=== PATIENT | male | born 1970 | race Caucasian/White ===

== ENCOUNTER 2020-11-07 09:46 | Inpatient (IN) ==
[2020-11-07 10:07] VITALS: BMI 36.3
[2020-11-07] MEDS ORDERED: DECADRON INJ IVP ONE (10:24)
[2020-11-07] MEDS ORDERED: PULMICORT NEB TX 0.5 MG NEB ONE (10:24)
[2020-11-07] MEDS ORDERED: PROVENTIL NEB TX 0.083% 2.5MG/ 3ML NEB ONE (10:24)
[2020-11-07] MEDS ORDERED: DECADRON INJ ONE (10:33)
--- NOTE | 2020-11-07 10:41 | DR.SOBA ---
HPI Time Seen Time Seen by Provider: 11/07/20 10:12 Primary Care Physician Primary Care Physician: IVELISSE VILLAFANA Complaints Chief Complaint Doctors Comments: cc: SOB HPI pt lost his sense of taste 11/02/20 had been tested on 10/31 for COVId 2nd to slight cough and was neg retested on 11/03 and + last night he began with REYES a cough mainly dry occasionally productive of brownish sputum no chest pain + low grade fever + general malaise sx increase with exertion decrease with rest Chief Complaint:: TESTED POSTIVE WEDNESDAY FROM RAPID SWAB. HAVE BEEN HAVIING CHILLS,FEVER,COUGH,DIAARHEA AT TIMES.COUGH EVERY TIME I GET TO TALKING,BREATHING IS UNCOMFORTABLE "LIKE IF I WAS IN THE [place] AND ITS COLD." HAVE LOST TASTE AND SMELL Self Treatment fo Chief Complaint: INHALER,ANTIBOIC,PREDISONE,ZPAK,ZINC,VIT C,A, INVERMECTED COVID-19 Coronavirus risk:travel/contact w/high risk person: Yes Has patient experienced Coronavirus symptoms: Yes Coronavirus symptoms experienced: Fever, Coughing and Shortness of Breath Source History Provided: Patient Mode of Arrival Mode of Arrival: Ambulatory Timing Onset of Chief Complaint: 11/03/20 PMH PMH Past Medical History: Yes Past Medical History: Dyslipidemia Past Surgical History: Yes Surgical History: Appendectomy and Tonsillectomy Family History History of Family Medical Conditions: Yes Family Medical History: [place] and Hypertension Social History Alcohol Use: None Do you use any recreational Drugs:: No Lives With: Spouse and Family Lives Where: Home Travel Risk Coronavirus risk:travel/contact w/high risk person: Yes Has patient experienced Coronavirus symptoms: Yes Coronavirus symptoms experienced: Fever, Coughing and Shortness of Breath Infectious screening In the last 2 months have you had wt loss of >10#?: NO Have you had fever, night sweats or hemotysis?: No Have you traveled outside the country in the last 6 months?: No Isolation: Droplet ROS Review of Systems Constitutional: Chills, Diaphoresis, Fever, Malaise, Weakness and Fatigue Eyes: No Symptoms Reported ENTM: No Symptoms Reported Respiratoy: See HPI Cardiovascular: No Symptoms Reported Gastrointestinal/Abdominal: No Symptoms Reported Genitourinary: No Symptoms Reported Neurological: No Symptoms Reported Musculoskeletal: Muscle Pain Integumentary: No Symptoms Reported Hematologic/Lymphatic: No Symptoms Reported Endocrine: No Symptoms Reported Psychiatric: No Symptoms Reported All Other Systems: Reviewed and Negative PE Vital Signs Vitals: Temperature 99.7 F Pulse Rate 85 Respiratory Rate 38 Blood Pressure 140/70 O2 Sat by Pulse Oximetry 93 General Limitations: No Limitations General Appearance: Alert and In No Apparent Distress Head Head Exam: Normal Inspection, Atraumatic and Normocephalic Eyes Eye exam: Normal Appearance, PERRL and EOMI; negative Scleral Icterus, Conjunctival Injection and Nystagmus ENT ENT Exam: Normal Exam, Normal Oropharynx, Normal External Ear Exam and Mucous Membranes Moist Neck Neck Exam: Normal Inspection, Full ROM and Trachea Midline; negative Tenderness, Meningismus and Lymphadenopathy Chest Chest Inspection: Normal Inspection and Symmetric Chest Wall Rise; negative T enderness Respiratory Respiratory Exam: Normal Lung Sounds Bilat; negative Accessory Muscle Use and Chest Wall Tenderness Respiratory Exam: Bilateral: Wheezing Cardiovascular Cardiovascular Exam: Regular Rate, Normal Rhythm and Normal Heart Sounds Abdominal Exam Abdominal Exam: Normal Inspection and Normal Bowel Sounds; negative Soft, Distention, Tenderness and Guarding Extremities Extremities Exam: Normal Inspection and Full ROM; negative Tenderness, Normal Capillary Refill, Edema and Joint Swelling Back Back Exam: Normal Inspection and Full ROM; negative Tenderness, (R) CVA Tenderness, (L) CVA Tenderness and Muscle Spasm Neurologic Neurological Exam: Alert, Oriented X3 and Normal Gait Psychiatric Psychiatric Exam: Normal Affect MDM Differential Diagnosis Differential Diagnosis: Asthma, Bronchitis, CHF, COPD, Dysrhythmia, Hyp erventilation, Hyponatremia, Mycardial Infarction, Pneumonia, Pneumothorax, Pulmonary embolism, Respiratory Failure and Respiratory Insufficiency ROR Labs Reviewed Laboratory Results Reviewed?: Yes Result Diagrams: 11/07/20 10:40 11/07/20 10:40 Laboratory: WBC 6.2 X10^3/uL (3.6-10.0) 11/07/20 10:40 RBC 5.50 X10^6/uL (4.7-6.0) 11/07/20 10:40 Hgb 15.8 g/dL (13.5-18.0) 11/07/20 10:40 Hct 47.6 % (42.0-54.0) 11/07/20 10:40 MCV 86.6 fL (80.0-100.0) 11/07/20 10:40 MCH 28.7 pg (27.0-34.0) 11/07/20 10:40 MCHC 33.2 g/dL (33.0-35.0) 11/07/20 10:40 RDW 15.3 % (11.6-16.5) 11/07/20 10:40 Plt Count 191 X10^3/uL (150.0-450.0) 11/07/20 10:40 MPV 8.2 fL (7.4-11.0) 11/07/20 10:40 Neut % (Auto) 82.0 % (42.0-75.0) H 11/07/20 10:40 Lymph % (Auto) 14.0 % (21.0-51.0) L 11/07/20 10:40 [place] % (Auto) 3.6 % (0.0-13.0) 11/07/20 10:40 Eos % (Auto) 0.0 % (0.9-2.9) L 11/07/20 10:40 Baso % (Auto) 0.4 % (0.2-1.0) 11/07/20 10:40 Neut # (Auto) 5.1 x10^3/uL (2.2-4.8) H 11/07/20 10:40 Lymph # (Auto) 0.9 X10^3/uL (1.3-2.9) L 11/07/20 10:40 [place] # (Auto) 0.2 x10^3/uL (0.3-0.8) L 11/07/20 10:40 Eos # (Auto) 0.0 x10^3/uL (0.0-0.2) 11/07/20 10:40 Baso # (Auto) 0.0 X10^3/uL (0.0-0.1) 11/07/20 10:40 Absolute Nucleated RBC 0.0 /100WBC 11/07/20 10:40 PT 12.7 SECONDS (11.8-14.3) 11/07/20 10:40 INR Target Range - 11/07/20 10:40 INR 0.98 (0.8-1.3) 11/07/20 10:40 APTT 35.7 SECONDS (22.9-36.5) 11/07/20 10:40 PTT Comment - 11/07/20 10:40 D-Dimer 0.22 ug/ml (0.0-0.57) 11/07/20 10:40 Sample Site Rra 11/07/20 10:42 ABG pH 7.480 (7.35-7.45) H 11/07/20 10:42 ABG pCO2 39.0 mmHg (35.0-45.0) 11/07/20 10:42 ABG pO2 54.0 mmHg (80.0-100.0) L 11/07/20 10:42 ABG HCO3 29.0 mmol/L (22-26) H 11/07/20 10:42 ABG O2 Saturation 90.0 % (90-100) 11/07/20 10:42 ABG Base Excess 5.2 mmol/L (-2.0-2.0) H 11/07/20 10:42 [place] Test Pos 11/07/20 10:42 A-a Gradient 47.0 mmHg 11/07/20 10:42 FiO2 21.0 11/07/20 10:42 Blood Gas Comments Pt larry well eb 11/07/20 10:42 Sodium 141 mmol/L (136-145) 11/07/20 10:40 Corrected Sodium 142 mmol/L (136-145) 11/07/20 10:40 Potassium 4.1 mmol/L (3.5-5.1) 11/07/20 10:40 Chloride 102 mmol/L (98-107) 11/07/20 10:40 Carbon Dioxide 30.0 mmol/L (21-32) 11/07/20 10:40 BUN 19 mg/dL (7-18) H 11/07/20 10:40 Creatinine 1.39 mg/dL (0.70-1.30) H 11/07/20 10:40 Est GFR (MDRD) Af Amer > 60 (>60) 11/07/20 10:40 Est GFR (MDRD) Non-Af 57 (>60) L 11/07/20 10:40 Glucose 123 mg/dL (65-99) H 11/07/20 10:40 Calcium 9.4 mg/dL (8.5-10.1) 11/07/20 10:40 Corrected Calcium TNP 11/07/20 10:40 Magnesium 1.8 mg/dL (1.7-2.9) 11/07/20 10:40 Total Bilirubin 0.70 mg/dL (0.2-1.0) 11/07/20 10:40 AST 57 Units/L (15-37) H 11/07/20 10:40 ALT 79 Units/L (12-78) H 11/07/20 10:40 Alkaline Phosphatase 70 Units/L (46-116) 11/07/20 10:40 Creatine Kinase 279 Units/L (39-308) 11/07/20 10:40 CK-MB (CK-2) 1.1 ng/mL (0-4.0) 11/07/20 10:40 CK/CKMB % Calc 0.4 % (<4) 11/07/20 10:40 Troponin I < 0.02 ng/mL (0-1.5) 11/07/20 10:40 B-Natriuretic Peptide 11.4 pg/mL (0-79) 11/07/20 10:40 Total Protein 8.3 g/dL (6.4-8.2) H 11/07/20 10:40 Albumin 3.8 g/dL (3.4-5.0) 11/07/20 10:40 Globulin 4.5 g/dL (2.5-4.5) 11/07/20 10:40 Albumin/Globulin Ratio 0.8 Ratio (1.1-2.1) L 11/07/20 10:40 SARS-CoV-2 (PCR) Positive (NEGATIVE) A 11/07/20 11:03 Influenza Type A (PCR) Negative (NEGATIVE) 11/07/20 11:03 Influenza Type B (PCR) Negative (NEGATIVE) 11/07/20 11:03 RSV (PCR) Negative (NEGATIVE) 11/07/20 11:03 XRAY XRAY Interpreted by: Radiologist X-ray Results: vieqwed independently by me compatible with COVID 19 Pneumonia EKG Rate: 81 [place]: LAD Rhythm: NSR Block: None Hypertrophy: None ST: Normal Opioid Opioid Risk Tool Age (Cb box if 16-45): No History of Preadolescent Sexual Abuse: No Total: 0 Total Score Risk Category: Low Risk Copyright: [facility] predicting aberrant behaviors Diagnosis Discharge Problem: Pneumonia due to COVID-19 virus, Hypoxia
[2020-11-07 10:45] LABS: ABG BASE EXCESS 5.2 mmol/L (-2.0-2.0)
[2020-11-07 10:46] LABS: ABG ALLEN TEST POS
--- NOTE | 2020-11-07 10:52 | RAD ---
HISTORYDyspnea.STUDYCHEST, 1 VIEWCOMPARISONNone available.FINDINGSThe trachea is midline. The cardiac silhouette is enlarged. Additionally, there are patchy ground-glass and airspace opacities seen within the periphery of the lung kearns which is most suspicious for a COVID-19 infection/pneumonia. Please correlate medically and with lab analysis for assurance. Additional infection/atypical pneumonia is also possible the COVID-19 must be excluded to account for these findings. Follow-up to resolution and close clinical follow-up is recommended. The bony thorax is unremarkable.IMPRESSIONAs above.Electronically signed by: BHAVIN CARRASQUILLO III (Nov 07, 2020 10:51:13)
[2020-11-07] MEDS ORDERED: ZITHROMAX INJ 500 MG VIAL 500 MG in NS 250 ML IV 250 ML IV SCH (10:58)
[2020-11-07 11:02] LABS: BASOPHILS % (AUTO) 0.4 % (0.2-1.0); HEMATOCRIT 47.6 % (42.0-54.0); HEMOGLOBIN 15.8 g/dL (13.5-18.0); LYMPHOCYTES # (AUTO) 0.9 X10^3/uL (1.3-2.9); MEAN CORPUSCULAR HEMOGLOBIN 28.7 pg (27.0-34.0); MEAN CORPUSCULAR HGB CONC 33.2 g/dL (33.0-35.0); MEAN CORPUSCULAR VOLUME 86.6 fL (80.0-100.0); MEAN PLATELET VOLUME 8.2 fL (7.4-11.0); MONOCYTES # (AUTO) 0.2 x10^3/uL (0.3-0.8); MONOCYTES % (AUTO) 3.6 % (0.0-13.0); NEUTROPHILS # (AUTO) 5.1 x10^3/uL (2.2-4.8); PLATELET COUNT 191 X10^3/uL (150.0-450.0); RED CELL DISTRIBUTION WIDTH 15.3 % (11.6-16.5); WHITE BLOOD COUNT 6.2 X10^3/uL (3.6-10.0)
[2020-11-07] MEDS ORDERED: NS 250 ML IV 250 ML IV ONE (11:17)
[2020-11-07] MEDS ORDERED: ZITHROMAX INJ 500 MG VIAL IV ONE (11:17)
[2020-11-07 11:26] LABS: BLOOD UREA NITROGEN 19 mg/dL (7-18); CALCIUM 9.4 mg/dL (8.5-10.1); CHLORIDE 102 mmol/L (98-107); COR NA(FOR HYPERGLY) 142 mmol/L (136-145); CREATININE 1.39 mg/dL (0.70-1.30); SODIUM 141 mmol/L (136-145); TROPONIN I < 0.02 ng/mL (0-1.5); eGFR NON BLACK RACES 57 (>60)
[2020-11-07] MEDS ORDERED: PROVENTIL NEB TX 0.083% 2.5MG/ 3ML ONE (11:29)
[2020-11-07 11:41] LABS: ALANINE AMINOTRANSFERASE 79 Units/L (12-78); ALBUMIN 3.8 g/dL (3.4-5.0); ALKALINE PHOSPHATASE 70 Units/L (46-116); ASPARTATE AMINO TRANSFERASE 57 Units/L (15-37); CKMB % 0.4 % (<4); CREATINE KINASE 279 Units/L (39-308); CREATINE KINASE MB 1.1 ng/mL (0-4.0); MAGNESIUM 1.8 mg/dL (1.7-2.9); TOTAL PROTEIN 8.3 g/dL (6.4-8.2)
[2020-11-07] MEDS ORDERED: REMDESIVIR 200 MG in NS 250 ML IV 250 ML IV ONE ×2 (12:59→15:00)
[2020-11-07] MEDS: ZITHROMAX TAB 250 MG PO ONE ×2 (15:14→15:16)
[2020-11-07] MEDS: NS 1000 ML 1,000 ML IV SCH (15:31)
[2020-11-07] MEDS: ZITHROMAX INJ 500 MG VIAL 500 MG in NS 250 ML IV 250 ML IV SCH (15:32)
[2020-11-07 16:24] LABS: CKMB % 0.4 % (<4); CREATINE KINASE 263 Units/L (39-308); CREATINE KINASE MB < 1.0 ng/mL (0-4.0); TROPONIN I < 0.02 ng/mL (0-1.5)
[2020-11-07] MEDS ORDERED: IVERMECTIN PO ONE (17:18)
[2020-11-07] MEDS ORDERED: NS 100 ML IV 100 ML IV ONE (17:25)
--- NOTE | 2020-11-07 18:14 | CT ---
HISTORYD-DIMER: .22 (220) TESTED POSTIVE WEDNESDAY FROM RAPID SWAB. HAVE BEEN HAVIING CHILLS, FEVER, COUGH, DIAARHEA AT TIMES. COUGH EVERYTIME I GET TO TALKING, BREATHING IS UNCOMFORTABLE "LIKE IF I WAS IN THE [place] AND ITS COLD." HAVE LOST TASTE AND SMELLDyspnea and shortness of breath.Study: CT angiogram of the chest with contrast, using the CT PE protocol. For this CT pulmonary embolism angiographic protocol, 3D reformats / maximum intensity projections (MIPs) of the pulmonary arterial circulation and pulmonary arteries was performed.Comparison: Chest radiograph of the same day.Technique: Multiple CT angiographic axial images of the chest were obtained from the thoracic inlet to the upper abdomen after the administration of IV contrast. For this CT pulmonary embolism angiographic protocol, 3D reformats / maximum intensity projections (MIPs) of the pulmonary arterial circulation and pulmonary arteries was performed.FINDINGS:The thoracic inlet is [unremarkable]. The mediastinum [does not demonstrate pathological lymphadenopathy].There is [no paracardial effusion] observed. The thoracic aorta [is normal in its contour without evidence for aneurysmal dilatation or acute dissection]. The central pulmonary arterial system [does not demonstrate central filling defects to suggest pulmonary emboli]. Evaluation of the lung parenchyma demonstrates patchy ground-glass and airspace space opacities throughout the lung kearns, compatible with an active COVID-19 infection/pneumonia. Close interval clinical and radiographic follow-up is recommended to ensure complete resolution of these findings. [No pulmonary nodule or mass] is identified]. The bony thorax is intact. The visualized portions of the upper abdomen [are without acute abnormality].IMPRESSION:Negative CT PE Exam for a central pulmonary embolism, as detailed above.Diffuse, patchy, airspace and ground-glass opacities seen throughout the lung kearns.Findings would be compatible with an active COVID-19 infection/pneumonia.Follow-up to complete resolution and close clinical follow-up is recommended.Electronically signed by: BHAVIN CARRASQUILLO III (Nov 07, 2020 18:12:50)
[2020-11-07] MEDS: ACCUNEB 1.25 MG NEBULE NEB SCH ×2 (18:46→21:30)
[2020-11-07] MEDS: ROBITUSSIN DM PO SCH (20:58)
[2020-11-07] MEDS: LOVAZA PO SCH (20:59)
[2020-11-07] MEDS ORDERED: MUCINEX DM PO SCH (21:00)
[2020-11-07] MEDS: PULMICORT NEB TX 0.5 MG NEB SCH (21:30)
[2020-11-07 21:59] LABS: CKMB % 0.3 % (<4); CREATINE KINASE 294 Units/L (39-308); CREATINE KINASE MB < 1.0 ng/mL (0-4.0); TROPONIN I < 0.02 ng/mL (0-1.5)
[2020-11-07] MEDS: RESTORIL CAP 15 MG PO PRN (22:30)
[2020-11-07] MEDS: SOLU-Medrol 125 MG VIAL IVP SCH (22:30)
[2020-11-08] MEDS ORDERED: HALLS COUGH DROPS MT PRN ×2 (02:26→08:44)
[2020-11-08] MEDS ORDERED: ROBITUSSIN DM PO ONE (03:21)
[2020-11-08 04:03] LABS: BASOPHILS % (AUTO) 0.2 % (0.2-1.0); HEMATOCRIT 45.1 % (42.0-54.0); HEMOGLOBIN 15.4 g/dL (13.5-18.0); LYMPHOCYTES # (AUTO) 0.6 X10^3/uL (1.3-2.9); LYMPHOCYTES % (AUTO) 11.8 % (21.0-51.0); MEAN CORPUSCULAR HEMOGLOBIN 29.3 pg (27.0-34.0); MEAN CORPUSCULAR HGB CONC 34.1 g/dL (33.0-35.0); MEAN CORPUSCULAR VOLUME 85.9 fL (80.0-100.0); MEAN PLATELET VOLUME 8.4 fL (7.4-11.0); MONOCYTES # (AUTO) 0.1 x10^3/uL (0.3-0.8); MONOCYTES % (AUTO) 2.7 % (0.0-13.0); NEUTROPHILS # (AUTO) 4.4 x10^3/uL (2.2-4.8); NEUTROPHILS % (AUTO) 85.3 % (42.0-75.0); PLATELET COUNT 186 X10^3/uL (150.0-450.0); RED BLOOD COUNT 5.24 X10^6/uL (4.7-6.0); RED CELL DISTRIBUTION WIDTH 15.2 % (11.6-16.5); WHITE BLOOD COUNT 5.1 X10^3/uL (3.6-10.0)
[2020-11-08 04:23] LABS: ALANINE AMINOTRANSFERASE 65 Units/L (12-78); ALBUMIN 3.5 g/dL (3.4-5.0); ALKALINE PHOSPHATASE 68 Units/L (46-116); ASPARTATE AMINO TRANSFERASE 49 Units/L (15-37); BLOOD UREA NITROGEN 21 mg/dL (7-18); CALCIUM 8.8 mg/dL (8.5-10.1); CARBON DIOXIDE 29.8 mmol/L (21-32); CHLORIDE 101 mmol/L (98-107); CKMB % 0.4 % (<4); COR NA(FOR HYPERGLY) 142 mmol/L (136-145); CREATINE KINASE 329 Units/L (39-308); CREATINE KINASE MB 1.2 ng/mL (0-4.0); CREATININE 1.55 mg/dL (0.70-1.30); SODIUM 140 mmol/L (136-145); TOTAL PROTEIN 8.1 g/dL (6.4-8.2); TROPONIN I < 0.02 ng/mL (0-1.5); eGFR NON BLACK RACES 50 (>60)
[2020-11-08] MEDS: SOLU-Medrol 125 MG VIAL IVP SCH ×3 (05:32→21:20)
[2020-11-08] MEDS: ACCUNEB 1.25 MG NEBULE NEB SCH ×3 (05:45→21:35)
[2020-11-08 05:54] LABS: ABG BASE EXCESS 3.7 mmol/L (-2.0-2.0); ABG HCO3 27.7 mmol/L (22-26)
[2020-11-08 05:55] LABS: ABG ALLEN TEST POS
[2020-11-08] MEDS: BEMPEDOIC ACID 180 MG PO SCH (08:55)
[2020-11-08] MEDS: NS 1000 ML 1,000 ML IV SCH ×3 (08:55→23:54)
[2020-11-08] MEDS: LOVAZA PO SCH ×2 (08:56→20:09)
[2020-11-08] MEDS: ZINC SULFATE PO SCH (08:56)
[2020-11-08] MEDS: LOVENOX INJ 40 MG SYR SC SCH (08:56)
[2020-11-08] MEDS: ROBITUSSIN DM PO SCH ×4 (08:57→20:09)
[2020-11-08] MEDS: REMDESIVIR 100 MG in NS 250 ML IV 250 ML IV SCH (08:58)
[2020-11-08] MEDS: VITAMIN C PO SCH (08:58)
[2020-11-08] MEDS: VITAMIN D3 25 mcg (1,000 UNITS) PO SCH (08:58)
[2020-11-08] MEDS ORDERED: LOVENOX INJ 100 MG SYR SC SCH (09:00)
[2020-11-08] MEDS ORDERED: ELDERBERRY FRUIT PO SCH (09:00)
[2020-11-08] MEDS: PULMICORT NEB TX 0.5 MG NEB SCH ×2 (09:10→21:35)
[2020-11-08] MEDS: PROVENTIL NEB TX 0.083% 2.5MG/ 3ML NEB PRN (09:10)
[2020-11-08] MEDS: ZITHROMAX INJ 500 MG VIAL 500 MG in NS 250 ML IV 250 ML IV SCH ×2 (15:50→15:51)
[2020-11-08] MEDS: RESTORIL CAP 15 MG PO PRN (21:22)
[2020-11-09 05:28] LABS: ABG ALLEN TEST POS; ABG BASE EXCESS 4.1 mmol/L (-2.0-2.0); ABG HCO3 28.5 mmol/L (22-26)
--- NOTE | 2020-11-09 05:34 | RAD ---
HISTORYcovidSTUDYPortable AP chestCOMPARISONFebruary 2020FINDINGSStable mild cardiac enlargement. There is no change in extent or distribution of bilateral infiltrates. No new consolidation, pleural fluid or extrapulmonary air identified.IMPRESSIONNo change. Mild diffuse bilateral infiltrates consistent with atypical pneumonia pattern.Electronically signed by: MATHIEU ROSS (Nov 09, 2020 05:32:50)
[2020-11-09] MEDS: ACCUNEB 1.25 MG NEBULE NEB SCH ×3 (05:45→20:50)
[2020-11-09] MEDS: SOLU-Medrol 125 MG VIAL IVP SCH ×3 (05:57→21:55)
[2020-11-09 06:04] LABS: ALANINE AMINOTRANSFERASE 64 Units/L (12-78); ALBUMIN 3.3 g/dL (3.4-5.0); ALKALINE PHOSPHATASE 61 Units/L (46-116); ASPARTATE AMINO TRANSFERASE 52 Units/L (15-37); BLOOD UREA NITROGEN 22 mg/dL (7-18); CALCIUM 8.3 mg/dL (8.5-10.1); CARBON DIOXIDE 31.3 mmol/L (21-32); CHLORIDE 104 mmol/L (98-107); COR CA(FOR HYPOALB) 8.9 mg/dL (8.5-10.1); COR NA(FOR HYPERGLY) 145 mmol/L (136-145); CREATININE 1.28 mg/dL (0.70-1.30); SODIUM 143 mmol/L (136-145); TOTAL PROTEIN 7.4 g/dL (6.4-8.2); eGFR NON BLACK RACES > 60 (>60)
[2020-11-09] MEDS: NS 1000 ML 1,000 ML IV SCH ×2 (06:10→18:40)
[2020-11-09 06:14] LABS: BASOPHILS % (AUTO) 0.1 % (0.2-1.0); HEMATOCRIT 44.1 % (42.0-54.0); HEMOGLOBIN 14.7 g/dL (13.5-18.0); LYMPHOCYTES # (AUTO) 0.6 X10^3/uL (1.3-2.9); LYMPHOCYTES % (AUTO) 8.4 % (21.0-51.0); MEAN CORPUSCULAR HEMOGLOBIN 29.1 pg (27.0-34.0); MEAN CORPUSCULAR HGB CONC 33.4 g/dL (33.0-35.0); MEAN CORPUSCULAR VOLUME 87.1 fL (80.0-100.0); MEAN PLATELET VOLUME 8.8 fL (7.4-11.0); MONOCYTES # (AUTO) 0.3 x10^3/uL (0.3-0.8); MONOCYTES % (AUTO) 4.3 % (0.0-13.0); NEUTROPHILS # (AUTO) 6.6 x10^3/uL (2.2-4.8); NEUTROPHILS % (AUTO) 87.2 % (42.0-75.0); PLATELET COUNT 203 X10^3/uL (150.0-450.0); RED BLOOD COUNT 5.06 X10^6/uL (4.7-6.0); RED CELL DISTRIBUTION WIDTH 15.4 % (11.6-16.5); WHITE BLOOD COUNT 7.5 X10^3/uL (3.6-10.0)
[2020-11-09] MEDS ORDERED: TYLENOL 325 MG TAB PO PRN (08:22)
[2020-11-09] MEDS ORDERED: TYLENOL 325 MG TAB PO ONE (08:26)
[2020-11-09] MEDS: PULMICORT NEB TX 0.5 MG NEB SCH ×2 (08:45→20:50)
[2020-11-09] MEDS: REMDESIVIR 100 MG in NS 250 ML IV 250 ML IV SCH (09:02)
[2020-11-09] MEDS: LOVAZA PO SCH ×2 (09:02→20:24)
[2020-11-09] MEDS: LOVENOX INJ 40 MG SYR SC SCH (09:02)
[2020-11-09] MEDS: ROBITUSSIN DM PO SCH ×4 (09:03→20:24)
[2020-11-09] MEDS: ZINC SULFATE PO SCH (09:03)
[2020-11-09] MEDS: VITAMIN C PO SCH (09:03)
[2020-11-09] MEDS: VITAMIN D3 25 mcg (1,000 UNITS) PO SCH (09:03)
[2020-11-09] MEDS: ZITHROMAX INJ 500 MG VIAL 500 MG in NS 250 ML IV 250 ML IV SCH (09:04)
[2020-11-09] MEDS: BEMPEDOIC ACID 180 MG PO SCH (14:21)
[2020-11-09] MEDS: RESTORIL CAP 15 MG PO PRN (20:24)
[2020-11-10] MEDS: NS 1000 ML 1,000 ML IV SCH ×3 (05:27→20:56)
[2020-11-10] MEDS: SOLU-Medrol 125 MG VIAL IVP SCH ×3 (05:27→20:56)
[2020-11-10] MEDS: ACCUNEB 1.25 MG NEBULE NEB SCH ×3 (05:35→21:28)
[2020-11-10 06:01] LABS: ABG BASE EXCESS 7.1 mmol/L (-2.0-2.0)
[2020-11-10 06:03] LABS: ABG ALLEN TEST POS; ABG HCO3 31.3 mmol/L (22-26)
[2020-11-10 06:25] LABS: BASOPHILS % (AUTO) 0.1 % (0.2-1.0); HEMATOCRIT 41.1 % (42.0-54.0); HEMOGLOBIN 13.8 g/dL (13.5-18.0); LYMPHOCYTES # (AUTO) 0.6 X10^3/uL (1.3-2.9); LYMPHOCYTES % (AUTO) 6.1 % (21.0-51.0); MEAN CORPUSCULAR HGB CONC 33.7 g/dL (33.0-35.0); MEAN CORPUSCULAR VOLUME 86.1 fL (80.0-100.0); MEAN PLATELET VOLUME 8.6 fL (7.4-11.0); MONOCYTES # (AUTO) 0.4 x10^3/uL (0.3-0.8); MONOCYTES % (AUTO) 4.2 % (0.0-13.0); NEUTROPHILS # (AUTO) 8.9 x10^3/uL (2.2-4.8); NEUTROPHILS % (AUTO) 89.6 % (42.0-75.0); PLATELET COUNT 226 X10^3/uL (150.0-450.0); RED BLOOD COUNT 4.78 X10^6/uL (4.7-6.0); RED CELL DISTRIBUTION WIDTH 14.9 % (11.6-16.5)
[2020-11-10 06:37] LABS: ALANINE AMINOTRANSFERASE 61 Units/L (12-78); ALBUMIN 3.2 g/dL (3.4-5.0); ALKALINE PHOSPHATASE 59 Units/L (46-116); ASPARTATE AMINO TRANSFERASE 50 Units/L (15-37); BLOOD UREA NITROGEN 24 mg/dL (7-18); CALCIUM 8.1 mg/dL (8.5-10.1); CARBON DIOXIDE 32.8 mmol/L (21-32); CHLORIDE 102 mmol/L (98-107); COR CA(FOR HYPOALB) 8.7 mg/dL (8.5-10.1); COR NA(FOR HYPERGLY) 144 mmol/L (136-145); CREATININE 1.33 mg/dL (0.70-1.30); SODIUM 142 mmol/L (136-145); TOTAL PROTEIN 7.1 g/dL (6.4-8.2); eGFR NON BLACK RACES > 60 (>60)
[2020-11-10] MEDS: VALIUM PO PRN (08:31)
[2020-11-10] MEDS: REMDESIVIR 100 MG in NS 250 ML IV 250 ML IV SCH (08:56)
[2020-11-10] MEDS: PULMICORT NEB TX 0.5 MG NEB SCH ×2 (09:07→21:28)
[2020-11-10] MEDS: LOVENOX INJ 40 MG SYR SC SCH (09:31)
[2020-11-10] MEDS: ROBITUSSIN DM PO SCH ×4 (09:32→20:56)
[2020-11-10] MEDS: LOVAZA PO SCH ×2 (09:32→20:55)
[2020-11-10] MEDS: VITAMIN C PO SCH (09:32)
[2020-11-10] MEDS: VITAMIN D3 25 mcg (1,000 UNITS) PO SCH (09:32)
[2020-11-10] MEDS: ZINC SULFATE PO SCH (09:32)
[2020-11-10] MEDS: ZITHROMAX INJ 500 MG VIAL 500 MG in NS 250 ML IV 250 ML IV SCH (11:30)
[2020-11-10] MEDS: BEMPEDOIC ACID 180 MG PO SCH (11:30)
[2020-11-10] MEDS: INVANZ INJ 1 GM VIAL 1 GM in NS 100 ML IV + SPIKE MINIBAG* 100 ML IV SCH (14:38)
--- NOTE | 2020-11-10 15:14 | RAD ---
EXAM: CHEST X-RAYHISTORY: Covid pneumonia.TECHNIQUE: AP CXR dated November 10, 2020 at 2:37 PM.COMPARISON: CXR dated November 09, 2020 at 5:07 AM.FINDINGS:Note: Exam degraded by shallow inspiratory effort.There is evidence for cardiomegaly. There are diffuse bilateral lung parenchymal infiltrates in keeping with with mild CHF or volume overload in the appropriate clinical setting; differential diagnosis includes (but is not limited to) diffuse interstitial pneumonia (e.g. Covid pneumonia) in the appropriate clinical setting.There is no gross focal lung consolidation, pleural effusion, or pneumothorax seen. The visualized bony structures are within normal limits.IMPRESSION:1. Diffuse bilateral lung parenchymal infiltrates in keeping with with mild CHF or volume overload in the appropriate clinical setting; differential diagnosis includes (but is not limited to) diffuse interstitial pneumonia (e.g. Covid pneumonia) in the appropriate clinical setting.2. Recommend clinical correlation and appropriate follow evaluation to ensure interval clearance as clinically warranted.3. Overall, no significant interval change seen.Electronically signed by: Warren Diaz (Nov 10, 2020 15:12:56)
[2020-11-10] MEDS: RESTORIL CAP 15 MG PO PRN (21:21)
[2020-11-11] MEDS: VALIUM PO PRN (02:10)
[2020-11-11] MEDS: SOLU-Medrol 125 MG VIAL IVP SCH ×4 (02:19→21:20)
[2020-11-11 04:08] LABS: ABG BASE EXCESS 8.6 mmol/L (-2.0-2.0); ABG HCO3 34.5 mmol/L (22-26)
[2020-11-11 04:09] LABS: ABG ALLEN TEST POS
[2020-11-11] MEDS: ACCUNEB 1.25 MG NEBULE NEB SCH ×3 (04:59→21:00)
[2020-11-11 06:08] LABS: BASOPHILS % (AUTO) 0.2 % (0.2-1.0); HEMATOCRIT 39.7 % (42.0-54.0); HEMOGLOBIN 13.5 g/dL (13.5-18.0); LYMPHOCYTES # (AUTO) 0.6 X10^3/uL (1.3-2.9); LYMPHOCYTES % (AUTO) 5.3 % (21.0-51.0); MEAN CORPUSCULAR HEMOGLOBIN 29.3 pg (27.0-34.0); MEAN CORPUSCULAR HGB CONC 34.1 g/dL (33.0-35.0); MEAN CORPUSCULAR VOLUME 85.8 fL (80.0-100.0); MEAN PLATELET VOLUME 8.8 fL (7.4-11.0); MONOCYTES # (AUTO) 0.3 x10^3/uL (0.3-0.8); MONOCYTES % (AUTO) 3.3 % (0.0-13.0); NEUTROPHILS # (AUTO) 9.4 x10^3/uL (2.2-4.8); NEUTROPHILS % (AUTO) 91.2 % (42.0-75.0); PLATELET COUNT 225 X10^3/uL (150.0-450.0); RED BLOOD COUNT 4.62 X10^6/uL (4.7-6.0); WHITE BLOOD COUNT 10.3 X10^3/uL (3.6-10.0)
[2020-11-11 06:23] LABS: ALANINE AMINOTRANSFERASE 63 Units/L (12-78); ALBUMIN 2.7 g/dL (3.4-5.0); ALKALINE PHOSPHATASE 60 Units/L (46-116); ASPARTATE AMINO TRANSFERASE 54 Units/L (15-37); BLOOD UREA NITROGEN 29 mg/dL (7-18); CALCIUM 7.3 mg/dL (8.5-10.1); CARBON DIOXIDE 32.6 mmol/L (21-32); CHLORIDE 103 mmol/L (98-107); COR CA(FOR HYPOALB) 8.3 mg/dL (8.5-10.1); COR NA(FOR HYPERGLY) 144 mmol/L (136-145); CREATININE 1.29 mg/dL (0.70-1.30); SODIUM 141 mmol/L (136-145); TOTAL PROTEIN 6.3 g/dL (6.4-8.2); eGFR NON BLACK RACES > 60 (>60)
[2020-11-11 07:58] LABS: BAND NEUTROPHILS % 2 % (0-10)
[2020-11-11 07:59] LABS: PLATELET MORPHOLOGY COMMENT NORMAL (NORMAL)
--- NOTE | 2020-11-11 08:07 | RAD ---
HISTORYCOVID+STUDYCHEST, 1 VIEWCOMPARISONFebruary 14thTECHNIQUEPortable chest x-rayFINDINGSLow lung volumes are demonstrated. There are hazy bilateral ground-glass opacities and regions of airspace consolidation involving the bilateral lungs consistent with diffuse pneumonia, the density of the infiltrates appearing slightly increased overall within the bilateral lung bases. The heart size is stable and unchanged. The pleural spaces are clear. There is no free air or pneumothorax.IMPRESSIONProgressive bilateral pulmonary opacities/infiltrates associated with an atypical pneumonia patternElectronically signed by: COURTNEY AUSTIN (Nov 11, 2020 08:07:44)
[2020-11-11] MEDS: INVANZ INJ 1 GM VIAL 1 GM in NS 100 ML IV + SPIKE MINIBAG* 100 ML IV SCH (08:58)
[2020-11-11] MEDS: ZINC SULFATE PO SCH (08:58)
[2020-11-11] MEDS: ZITHROMAX TAB 250 MG PO SCH (08:58)
[2020-11-11] MEDS: VITAMIN D3 25 mcg (1,000 UNITS) PO SCH (09:01)
[2020-11-11] MEDS: VITAMIN C PO SCH (09:01)
[2020-11-11] MEDS: LOVAZA PO SCH ×2 (09:02→20:18)
[2020-11-11] MEDS: LOVENOX INJ 40 MG SYR SC SCH (09:03)
[2020-11-11] MEDS: ROBITUSSIN DM PO SCH ×4 (09:16→20:12)
[2020-11-11] MEDS: NS 1000 ML 1,000 ML IV SCH (09:16)
[2020-11-11] MEDS: BEMPEDOIC ACID 180 MG PO SCH (09:47)
[2020-11-11] MEDS: PULMICORT NEB TX 0.5 MG NEB SCH ×2 (09:55→21:00)
[2020-11-11] MEDS: REMDESIVIR 100 MG in NS 250 ML IV 250 ML IV SCH (10:05)
[2020-11-11] MEDS: PROTONIX INJ 40 MG VIAL IVP SCH (18:20)
[2020-11-12] MEDS: PROVENTIL NEB TX 0.083% 2.5MG/ 3ML NEB PRN ×2 (03:50→08:56)
[2020-11-12] MEDS: NS 1000 ML 1,000 ML IV SCH ×2 (04:21→11:00)
[2020-11-12 05:04] LABS: ABG ALLEN TEST POS; ABG BASE EXCESS 7.6 mmol/L (-2.0-2.0); ABG HCO3 32.7 mmol/L (22-26)
[2020-11-12] MEDS: ACCUNEB 1.25 MG NEBULE NEB SCH ×3 (05:08→20:45)
[2020-11-12] MEDS: SOLU-Medrol 125 MG VIAL IVP SCH ×3 (05:13→21:01)
[2020-11-12 05:35] LABS: BASOPHILS % (AUTO) 0.1 % (0.2-1.0); EOSINOPHILS % (AUTO) 0.1 % (0.9-2.9); HEMATOCRIT 43.3 % (42.0-54.0); HEMOGLOBIN 14.4 g/dL (13.5-18.0); LYMPHOCYTES # (AUTO) 0.6 X10^3/uL (1.3-2.9); LYMPHOCYTES % (AUTO) 5.5 % (21.0-51.0); MEAN CORPUSCULAR HEMOGLOBIN 28.7 pg (27.0-34.0); MEAN CORPUSCULAR HGB CONC 33.2 g/dL (33.0-35.0); MEAN CORPUSCULAR VOLUME 86.5 fL (80.0-100.0); MEAN PLATELET VOLUME 8.9 fL (7.4-11.0); MONOCYTES # (AUTO) 0.4 x10^3/uL (0.3-0.8); MONOCYTES % (AUTO) 3.6 % (0.0-13.0); NEUTROPHILS # (AUTO) 9.8 x10^3/uL (2.2-4.8); NEUTROPHILS % (AUTO) 90.7 % (42.0-75.0); PLATELET COUNT 263 X10^3/uL (150.0-450.0); RED CELL DISTRIBUTION WIDTH 14.7 % (11.6-16.5); WHITE BLOOD COUNT 10.8 X10^3/uL (3.6-10.0)
[2020-11-12 05:47] LABS: ALANINE AMINOTRANSFERASE 63 Units/L (12-78); ALBUMIN 2.8 g/dL (3.4-5.0); ALKALINE PHOSPHATASE 67 Units/L (46-116); ASPARTATE AMINO TRANSFERASE 41 Units/L (15-37); BLOOD UREA NITROGEN 30 mg/dL (7-18); CALCIUM 7.6 mg/dL (8.5-10.1); CARBON DIOXIDE 33.1 mmol/L (21-32); CHLORIDE 102 mmol/L (98-107); COR CA(FOR HYPOALB) 8.6 mg/dL (8.5-10.1); COR NA(FOR HYPERGLY) 143 mmol/L (136-145); CREATININE 1.49 mg/dL (0.70-1.30); SODIUM 140 mmol/L (136-145); TOTAL PROTEIN 6.5 g/dL (6.4-8.2); eGFR NON BLACK RACES 53 (>60)
[2020-11-12 06:43] LABS: PLATELET MORPHOLOGY COMMENT NORMAL (NORMAL)
[2020-11-12] MEDS: PULMICORT NEB TX 0.5 MG NEB SCH ×2 (08:56→20:45)
[2020-11-12] MEDS: ZITHROMAX TAB 250 MG PO SCH (08:58)
[2020-11-12] MEDS: INVANZ INJ 1 GM VIAL 1 GM in NS 100 ML IV + SPIKE MINIBAG* 100 ML IV SCH (08:58)
[2020-11-12] MEDS: ZINC SULFATE PO SCH (08:58)
[2020-11-12] MEDS: VITAMIN D3 25 mcg (1,000 UNITS) PO SCH (08:58)
[2020-11-12] MEDS: LOVAZA PO SCH ×2 (08:59→20:13)
[2020-11-12] MEDS: PROTONIX INJ 40 MG VIAL IVP SCH ×2 (09:00→20:13)
[2020-11-12] MEDS: ROBITUSSIN DM PO SCH ×4 (09:01→20:13)
[2020-11-12] MEDS: VITAMIN C PO SCH (09:01)
[2020-11-12] MEDS: LOVENOX INJ 40 MG SYR SC SCH (09:02)
[2020-11-12] MEDS: BEMPEDOIC ACID 180 MG PO SCH (09:28)
[2020-11-12] MEDS ORDERED: LASIX IVP SCH (10:00)
--- NOTE | 2020-11-12 10:11 | RAD ---
HISTORYLOW HEART RATE, COVID +STUDYCHEST, 1 VIEWCOMPARISONPortable chest November 11, 2020.FINDINGSThe trachea is midline. The cardiac silhouette is unremarkable. There has been mild improvement in the bilateral infiltrates compared to yesterdays study. No effusion or pneumothorax is observed.. The bony thorax is unremarkable.IMPRESSIONMild improvement in the density of the infiltrates bilaterally consistent with COVID-19 pneumonia. Lung volumes remain low.Electronically signed by: SHELLIE TORRES (Nov 12, 2020 10:09:37)
[2020-11-12 15:04] LABS: CALCIUM 7.5 mg/dL (8.5-10.1); CARBON DIOXIDE 33.3 mmol/L (21-32); CREATININE 1.6 mg/dL (0.70-1.30)
[2020-11-12] MEDS ORDERED: PROTONIX INJ 40 MG VIAL ONE (19:45)
[2020-11-12] MEDS: VALIUM PO PRN (22:19)
[2020-11-13] MEDS: NS 1000 ML 1,000 ML IV SCH ×2 (03:13→12:25)
[2020-11-13] MEDS: SOLU-Medrol 125 MG VIAL IVP SCH ×3 (05:18→21:30)
[2020-11-13 05:42] LABS: ABG BASE EXCESS 7.6 mmol/L (-2.0-2.0)
[2020-11-13 05:43] LABS: ABG HCO3 32.7 mmol/L (22-26)
[2020-11-13 05:44] LABS: ABG ALLEN TEST POS
[2020-11-13 05:52] LABS: BASOPHILS % (AUTO) 0.1 % (0.2-1.0); HEMATOCRIT 41.5 % (42.0-54.0); HEMOGLOBIN 14.1 g/dL (13.5-18.0); LYMPHOCYTES # (AUTO) 0.5 X10^3/uL (1.3-2.9); LYMPHOCYTES % (AUTO) 4.1 % (21.0-51.0); MEAN CORPUSCULAR HGB CONC 34.1 g/dL (33.0-35.0); MEAN CORPUSCULAR VOLUME 85.1 fL (80.0-100.0); MEAN PLATELET VOLUME 8.8 fL (7.4-11.0); MONOCYTES # (AUTO) 0.3 x10^3/uL (0.3-0.8); MONOCYTES % (AUTO) 2.6 % (0.0-13.0); NEUTROPHILS # (AUTO) 10.4 x10^3/uL (2.2-4.8); NEUTROPHILS % (AUTO) 93.2 % (42.0-75.0); PLATELET COUNT 244 X10^3/uL (150.0-450.0); RED BLOOD COUNT 4.87 X10^6/uL (4.7-6.0); RED CELL DISTRIBUTION WIDTH 14.5 % (11.6-16.5); WHITE BLOOD COUNT 11.1 X10^3/uL (3.6-10.0)
[2020-11-13] MEDS: ACCUNEB 1.25 MG NEBULE NEB SCH ×3 (06:01→20:58)
[2020-11-13 06:07] LABS: ALANINE AMINOTRANSFERASE 56 Units/L (12-78); ALBUMIN 2.5 g/dL (3.4-5.0); ALKALINE PHOSPHATASE 62 Units/L (46-116); ASPARTATE AMINO TRANSFERASE 34 Units/L (15-37); BLOOD UREA NITROGEN 31 mg/dL (7-18); CALCIUM 7.3 mg/dL (8.5-10.1); CARBON DIOXIDE 33.7 mmol/L (21-32); CHLORIDE 100 mmol/L (98-107); COR CA(FOR HYPOALB) 8.5 mg/dL (8.5-10.1); COR NA(FOR HYPERGLY) 141 mmol/L (136-145); CREATININE 1.51 mg/dL (0.70-1.30); SODIUM 138 mmol/L (136-145); TOTAL PROTEIN 6.1 g/dL (6.4-8.2); eGFR NON BLACK RACES 52 (>60)
[2020-11-13 06:08] LABS: BAND NEUTROPHILS % 3 % (0-10); PLATELET MORPHOLOGY COMMENT NORMAL (NORMAL)
--- NOTE | 2020-11-13 07:05 | RAD ---
HISTORYFollow-up COVID-19STUDYChest AP [id number]/16/2021FINDINGSHypo inflation accentuates the heart size. It is likely still enlarged. No congestive heart failure is noted. There is been continued improvement in the bilateral lung infiltrates being followed. Residual peripheral infiltrates remain on the left. No pleural effusions are identified. Bony thorax is unremarkable.IMPRESSIONContinued improvement in the patient's lung infiltratesContinued hypo inflationNo change cardiomegaly without congestive heart failureElectronically signed by: BRIAN SPRING (Nov 13, 2020 07:03:17)
[2020-11-13 08:37] LABS: CKMB % 0.2 % (<4); CREATINE KINASE 430 Units/L (39-308); CREATINE KINASE MB < 1.0 ng/mL (0-4.0); TROPONIN I < 0.02 ng/mL (0-1.5)
[2020-11-13] MEDS: ASPIRIN EC 81 MG PO SCH (08:48)
[2020-11-13] MEDS: VITAMIN C PO SCH (08:54)
[2020-11-13] MEDS: PROTONIX INJ 40 MG VIAL IVP SCH ×2 (08:55→21:29)
[2020-11-13] MEDS: VITAMIN D3 125 mcg (5,000 UNITS) PO SCH (08:55)
[2020-11-13] MEDS: BEMPEDOIC ACID 180 MG PO SCH (08:55)
[2020-11-13] MEDS: ROBITUSSIN DM PO SCH ×4 (08:55→21:30)
[2020-11-13] MEDS: ZITHROMAX TAB 250 MG PO SCH (08:55)
[2020-11-13] MEDS: ZINC SULFATE PO SCH (08:56)
[2020-11-13] MEDS: LOVAZA PO SCH ×2 (08:56→21:29)
[2020-11-13] MEDS: LOVENOX INJ 40 MG SYR SC SCH (08:56)
[2020-11-13] MEDS: INVANZ INJ 1 GM VIAL 1 GM in NS 100 ML IV + SPIKE MINIBAG* 100 ML IV SCH (08:57)
[2020-11-13] MEDS: PULMICORT NEB TX 0.5 MG NEB SCH ×2 (09:36→20:58)
[2020-11-13] MEDS: PROVENTIL NEB TX 0.083% 2.5MG/ 3ML NEB PRN (09:36)
[2020-11-13 13:58] LABS: FREE T4 (FREE THYROXINE) 0.84 ng/dL (0.76-1.46); TSH (3RD GENERATION) 0.447 uIU/mL (0.358-3.74)
[2020-11-13] MEDS: VALIUM PO PRN (22:00)
[2020-11-14 05:20] LABS: BASOPHILS % (AUTO) 0.1 % (0.2-1.0); HEMATOCRIT 43.3 % (42.0-54.0); HEMOGLOBIN 14.5 g/dL (13.5-18.0); LYMPHOCYTES # (AUTO) 0.4 X10^3/uL (1.3-2.9); LYMPHOCYTES % (AUTO) 3.1 % (21.0-51.0); MEAN CORPUSCULAR HEMOGLOBIN 28.6 pg (27.0-34.0); MEAN CORPUSCULAR HGB CONC 33.4 g/dL (33.0-35.0); MEAN CORPUSCULAR VOLUME 85.5 fL (80.0-100.0); MEAN PLATELET VOLUME 9.1 fL (7.4-11.0); MONOCYTES # (AUTO) 0.2 x10^3/uL (0.3-0.8); MONOCYTES % (AUTO) 1.7 % (0.0-13.0); NEUTROPHILS # (AUTO) 11.6 x10^3/uL (2.2-4.8); NEUTROPHILS % (AUTO) 95.1 % (42.0-75.0); PLATELET COUNT 259 X10^3/uL (150.0-450.0); RED BLOOD COUNT 5.07 X10^6/uL (4.7-6.0); RED CELL DISTRIBUTION WIDTH 14.5 % (11.6-16.5); WHITE BLOOD COUNT 12.2 X10^3/uL (3.6-10.0)
[2020-11-14 05:30] LABS: ALANINE AMINOTRANSFERASE 63 Units/L (12-78); ALBUMIN 2.6 g/dL (3.4-5.0); ALKALINE PHOSPHATASE 63 Units/L (46-116); ASPARTATE AMINO TRANSFERASE 38 Units/L (15-37); BLOOD UREA NITROGEN 29 mg/dL (7-18); CALCIUM 7.4 mg/dL (8.5-10.1); CARBON DIOXIDE 33.4 mmol/L (21-32); CHLORIDE 100 mmol/L (98-107); CHOL/HDL RATIO 11.4 (0.0-5.0); CHOLESTEROL 216 mg/dL (0-200); COR CA(FOR HYPOALB) 8.5 mg/dL (8.5-10.1); COR NA(FOR HYPERGLY) 141 mmol/L (136-145); CREATININE 1.24 mg/dL (0.70-1.30); HDL CHOLESTEROL 19 mg/dL (40-60); MAGNESIUM 2.6 mg/dL (1.7-2.9); SODIUM 138 mmol/L (136-145); TOTAL PROTEIN 6.1 g/dL (6.4-8.2); TRIGLYCERIDES 868 mg/dL (0-150); eGFR NON BLACK RACES > 60 (>60)
[2020-11-14 05:55] LABS: ABG BASE EXCESS 8.1 mmol/L (-2.0-2.0)
[2020-11-14 05:56] LABS: ABG ALLEN TEST POS; ABG HCO3 32.8 mmol/L (22-26)
[2020-11-14 05:57] LABS: BAND NEUTROPHILS % 4 % (0-10); PLATELET MORPHOLOGY COMMENT NORMAL (NORMAL)
[2020-11-14] MEDS: ACCUNEB 1.25 MG NEBULE NEB SCH ×3 (06:08→20:25)
[2020-11-14] MEDS: NS 1000 ML 1,000 ML IV SCH ×3 (06:10→16:26)
[2020-11-14] MEDS: SOLU-Medrol 125 MG VIAL IVP SCH ×3 (06:10→21:35)
--- NOTE | 2020-11-14 06:26 | RAD ---
HISTORYFollow-up COVID-19STUDYChest AP [id number]/2021FINDINGSThe heart remains enlarged. The lungs remain mildly hypoinflated. No congestive heart failure is noted. Bilateral lung infiltrates are again identified now more prominent on the right than the left no definite pleural effusions are identified. Bony thorax is unremarkable.IMPRESSIONBilateral infiltrates unchanged somewhat now being more prominent on the right than the left when compared to the prior examinationNo change cardiomegaly without congestive heart failureElectronically signed by: BRIAN SPRING (Nov 14, 2020 06:24:37)
[2020-11-14] MEDS: PULMICORT NEB TX 0.5 MG NEB SCH ×2 (08:38→20:25)
[2020-11-14] MEDS: LOVAZA PO SCH ×2 (09:34→20:43)
[2020-11-14] MEDS: ASPIRIN EC 81 MG PO SCH (09:34)
[2020-11-14] MEDS: INVANZ INJ 1 GM VIAL 1 GM in NS 100 ML IV + SPIKE MINIBAG* 100 ML IV SCH (09:34)
[2020-11-14] MEDS: LOVENOX INJ 40 MG SYR SC SCH (09:34)
[2020-11-14] MEDS: BEMPEDOIC ACID 180 MG PO SCH (09:34)
[2020-11-14] MEDS: ROBITUSSIN DM PO SCH ×4 (09:35→22:00)
[2020-11-14] MEDS: PROTONIX INJ 40 MG VIAL IVP SCH ×2 (09:35→20:42)
[2020-11-14] MEDS: VITAMIN D3 125 mcg (5,000 UNITS) PO SCH (09:36)
[2020-11-14] MEDS: VITAMIN C PO SCH (09:36)
[2020-11-14] MEDS: ZINC SULFATE PO SCH (09:36)
[2020-11-14] MEDS: ZITHROMAX TAB 250 MG PO SCH (09:36)
[2020-11-14] MEDS: VALIUM PO PRN (22:00)
[2020-11-15 04:44] LABS: ABG BASE EXCESS 8.1 mmol/L (-2.0-2.0)
[2020-11-15 04:45] LABS: ABG ALLEN TEST POS; ABG HCO3 32.8 mmol/L (22-26)
[2020-11-15] MEDS: ACCUNEB 1.25 MG NEBULE NEB SCH ×2 (05:03→13:15)
[2020-11-15] MEDS: NS 1000 ML 1,000 ML IV SCH (05:16)
[2020-11-15] MEDS: SOLU-Medrol 125 MG VIAL IVP SCH ×4 (05:16→14:48)
[2020-11-15 06:07] LABS: BASOPHILS % (AUTO) 0 % (0.2-1.0); HEMATOCRIT 42.6 % (42.0-54.0); HEMOGLOBIN 14.2 g/dL (13.5-18.0); LYMPHOCYTES # (AUTO) 0.5 X10^3/uL (1.3-2.9); LYMPHOCYTES % (AUTO) 4.8 % (21.0-51.0); MEAN CORPUSCULAR HEMOGLOBIN 28.6 pg (27.0-34.0); MEAN CORPUSCULAR HGB CONC 33.4 g/dL (33.0-35.0); MEAN CORPUSCULAR VOLUME 85.8 fL (80.0-100.0); MEAN PLATELET VOLUME 9.4 fL (7.4-11.0); MONOCYTES # (AUTO) 0.2 x10^3/uL (0.3-0.8); MONOCYTES % (AUTO) 1.9 % (0.0-13.0); NEUTROPHILS # (AUTO) 9.3 x10^3/uL (2.2-4.8); NEUTROPHILS % (AUTO) 93.3 % (42.0-75.0); PLATELET COUNT 215 X10^3/uL (150.0-450.0); RED BLOOD COUNT 4.97 X10^6/uL (4.7-6.0); RED CELL DISTRIBUTION WIDTH 14.3 % (11.6-16.5)
[2020-11-15 06:18] LABS: ALANINE AMINOTRANSFERASE 61 Units/L (12-78); ALBUMIN 2.6 g/dL (3.4-5.0); ALKALINE PHOSPHATASE 63 Units/L (46-116); ASPARTATE AMINO TRANSFERASE 31 Units/L (15-37); BLOOD UREA NITROGEN 24 mg/dL (7-18); CALCIUM 7.9 mg/dL (8.5-10.1); CARBON DIOXIDE 32.1 mmol/L (21-32); CHLORIDE 99 mmol/L (98-107); COR NA(FOR HYPERGLY) 142 mmol/L (136-145); CREATININE 1.31 mg/dL (0.70-1.30); SODIUM 138 mmol/L (136-145); TOTAL PROTEIN 5.9 g/dL (6.4-8.2); eGFR NON BLACK RACES > 60 (>60)
--- NOTE | 2020-11-15 06:37 | RAD ---
HISTORYFollow-up COVID-19STUDYChest AP [id number]/18/2021FINDINGSHypo inflation accentuates the heart size. It is likely still mildly enlarged. No definite congestive heart failure identified. Bilateral lung infiltrates involve all lung kearns and are more prominent than on the prior examination. No pleural effusions are identified. Bony thorax is unremarkable.IMPRESSIONNo change cardiomegaly without congestive heart failureIncreasing diffuse bilateral lung infiltrates when compared to the prior examinationElectronically signed by: BRIAN SPRING (Nov 15, 2020 06:35:50)
[2020-11-15 06:59] LABS: PLATELET MORPHOLOGY COMMENT NORMAL (NORMAL)
[2020-11-15] MEDS: PULMICORT NEB TX 0.5 MG NEB SCH ×2 (08:55→09:00)
[2020-11-15] MEDS: ASPIRIN EC 81 MG PO SCH (09:37)
[2020-11-15] MEDS: INVANZ INJ 1 GM VIAL 1 GM in NS 100 ML IV + SPIKE MINIBAG* 100 ML IV SCH (09:37)
[2020-11-15] MEDS: LOVAZA PO SCH (09:38)
[2020-11-15] MEDS: PROTONIX INJ 40 MG VIAL IVP SCH (09:38)
[2020-11-15] MEDS: VITAMIN C PO SCH (09:38)
[2020-11-15] MEDS: ROBITUSSIN DM PO SCH ×3 (09:39→13:22)
[2020-11-15] MEDS: ZITHROMAX TAB 250 MG PO SCH (09:39)
[2020-11-15] MEDS: ZINC SULFATE PO SCH (09:39)
[2020-11-15] MEDS: VITAMIN D3 125 mcg (5,000 UNITS) PO SCH (09:39)
[2020-11-15] MEDS: LOVENOX INJ 40 MG SYR SC SCH (09:40)
[2020-11-15] MEDS: BEMPEDOIC ACID 180 MG PO SCH (09:45)
[2020-11-15 13:15] LABS: ABG ALLEN TEST POS; ABG BASE EXCESS 4.4 mmol/L (-2.0-2.0); ABG HCO3 28.4 mmol/L (22-26)
[2020-11-15 13:29] LABS: ALBUMIN 2.5 g/dL (3.4-5.0); ALKALINE PHOSPHATASE 74 Units/L (46-116); BLOOD UREA NITROGEN 24 mg/dL (7-18); CALCIUM 7.5 mg/dL (8.5-10.1); CHLORIDE 98 mmol/L (98-107); COR CA(FOR HYPOALB) 8.7 mg/dL (8.5-10.1); COR NA(FOR HYPERGLY) 143 mmol/L (136-145); CREATININE 1.48 mg/dL (0.70-1.30); SODIUM 136 mmol/L (136-145); TOTAL PROTEIN 5.8 g/dL (6.4-8.2); eGFR NON BLACK RACES 53 (>60)
[2020-11-15 13:46] LABS: ALANINE AMINOTRANSFERASE 60 Units/L (12-78); ASPARTATE AMINO TRANSFERASE 39 Units/L (15-37)
[2020-11-15] MEDS ORDERED: LASIX IVP SCH (14:30)
[2020-11-15] MEDS ORDERED: LASIX ONE (14:33)
[2020-11-15 14:47] LABS: ABG BASE EXCESS 6.9 mmol/L (-2.0-2.0)
[2020-11-15 14:48] LABS: ABG HCO3 30.3 mmol/L (22-26)
[2020-11-15 14:49] LABS: ABG ALLEN TEST POS
[2020-11-15 17:27] VITALS: BP 131/66
== END 2020-11-15 16:50 | disposition left against medical advice (07) | DRG 177 ==
LOC: ER 09:55 → MED/SURG 12:59 → ICU 11-10 22:06
PROVIDERS: ADMIT Internal Medicine; ATTEND Internal Medicine